=== PATIENT | female | born 1965 | race Caucasian/White ===

== ENCOUNTER 2021-04-21 12:17 | Inpatient (IN) ==
[2021-04-21] MEDS ORDERED: Ondansetron ODT 4 MG TAB.RAPDIS SL PRN (16:12)
[2021-04-21 17:07] LABS: Hematocrit 39.3 % (35.3-44.9); Hemoglobin 11.7 g/dL (11.5-15.4); Mean Corpuscular HGB Conc 29.8 g/dL (31.6-35.5); Mean Corpuscular Hemoglobin 28.1 pg (28.0-33.3); Mean Corpuscular Volume 94.2 fL (83.0-100.0); Platelet Count 243 K/mcL (140-400); Red Blood Count 4.17 M/mcL (3.82-4.97); Red Cell Distribution Width 15.9 % (11.5-14.5); White Blood Count 7.9 K/mcL (4.3-11.1)
[2021-04-21 17:19] LABS: INR 1.3; Prothrombin Time 15.3 Seconds (9.4-12.1)
[2021-04-21 17:30] LABS: Alanine Aminotransferase 32 Units/L (7-52); Albumin 4.7 g/dL (3.5-5.7); Albumin/Globulin Ratio 1.2 (1.1-2.2); Alkaline Phosphatase 105 Units/L (34-104); Aspartate Amino Transferase 40 Units/L (13-39); BUN/Creatinine Ratio 20 (6-26); Bilirubin,Total 0.4 mg/dL (0.3-1.0); Blood Urea Nitrogen 11 mg/dL (6-20); Calcium 9.7 mg/dL (8.6-10.3); Carbon Dioxide 26 mEq/L (23-29); Chloride 103 mEq/L (98-107); Globulin 3.8 g/dL (2.4-3.5); Glucose 116 mg/dL (70-105); Magnesium 2.1 mg/dL (1.6-2.6); Osmolality,Calculated 288 (280-300); Phosphorous 4.3 mg/dL (2.7-4.5); Potassium 4.1 mEq/L (3.5-5.1); Sodium 139 mEq/L (136-145); Total Protein 8.5 g/dL (6.4-8.9); eGFR For African Americans > 60 (> 60); eGFR For Non-African Americans > 60 (> 60)
[2021-04-21] MEDS: Ondansetron 4 MG/2 ML VIAL IVP PRN (17:46)
[2021-04-21] MEDS ORDERED: *HR* OxyCODONE Immed Rel 5 MG TABLET PO PRN (17:53)
[2021-04-21] MEDS: *HR* HYDROmorphone (PF) 1 MG/ML SYRINGE IVP PRN (18:51)
[2021-04-21] MEDS: hydrOXYzine pamoate 25 MG CAPSULE PO SCH (21:41)
[2021-04-21] MEDS: *HR* OxyCODONE/APAP 7.5/325 TABLET PO SCH (21:41)
[2021-04-21] MEDS: Gabapentin 300 MG CAPSULE PO SCH (21:42)
[2021-04-21] MEDS: Apixaban 5 MG TABLET PO SCH (21:42)
[2021-04-21] MEDS ORDERED: *HR* Heparin 5,000 UNIT/ML VIAL SQ SCH (22:00)
[2021-04-22] MEDS: Ringers Solution, Lactated 1,000 ML IVC SCH ×2 (00:44→14:45)
[2021-04-22] MEDS: *HR* HYDROmorphone (PF) 1 MG/ML SYRINGE IVP PRN ×2 (01:29→07:44)
[2021-04-22] MEDS: Ondansetron 4 MG/2 ML VIAL IVP PRN (05:04)
[2021-04-22] MEDS ORDERED: Isovue-370 500 ML BOTTLE IVP ONE (08:54)
[2021-04-22] MEDS ORDERED: Ipratropium/Albuterol Neb 3 ML IH PRN (08:56)
[2021-04-22 09:57] LABS: Hematocrit 36.2 % (35.3-44.9); Hemoglobin 10.6 g/dL (11.5-15.4); Mean Corpuscular HGB Conc 29.3 g/dL (31.6-35.5); Mean Corpuscular Hemoglobin 27.7 pg (28.0-33.3); Mean Corpuscular Volume 94.8 fL (83.0-100.0); Mean Platelet Volume 10.1 fL (9.4-12.4); Platelet Count 222 K/mcL (140-400); Red Blood Count 3.82 M/mcL (3.82-4.97); Red Cell Distribution Width 15.9 % (11.5-14.5); White Blood Count 6.8 K/mcL (4.3-11.1)
[2021-04-22 10:21] LABS: BUN/Creatinine Ratio 22 (6-26); Blood Urea Nitrogen 11 mg/dL (6-20); Calcium 9.1 mg/dL (8.6-10.3); Carbon Dioxide 29 mEq/L (23-29); Chloride 104 mEq/L (98-107); Glucose 102 mg/dL (70-105); Magnesium 2.1 mg/dL (1.6-2.6); Osmolality,Calculated 288 (280-300); Phosphorous 3.5 mg/dL (2.7-4.5); Potassium 4.1 mEq/L (3.5-5.1); Sodium 139 mEq/L (136-145); eGFR For African Americans > 60 (> 60); eGFR For Non-African Americans > 60 (> 60)
[2021-04-22] MEDS: Ipratropium/Albuterol Neb 3 ML IH SCH ×3 (11:07→21:59)
[2021-04-22] MEDS: Gabapentin 300 MG CAPSULE PO SCH ×2 (13:14→15:49)
[2021-04-22] MEDS: *HR* OxyCODONE/APAP 7.5/325 TABLET PO SCH (13:14)
[2021-04-22] MEDS: Apixaban 5 MG TABLET PO SCH (13:14)
[2021-04-22] MEDS: hydrOXYzine pamoate 25 MG CAPSULE PO SCH (13:15)
[2021-04-22] MEDS ORDERED: *HR* Heparin 5,000 UNIT/ML VIAL IVP PRN ×2 (15:21)
[2021-04-22 16:23] LABS: Hematocrit 37.1 % (35.3-44.9); Hemoglobin 11.2 g/dL (11.5-15.4); Mean Corpuscular HGB Conc 30.2 g/dL (31.6-35.5); Mean Corpuscular Hemoglobin 27.9 pg (28.0-33.3); Mean Corpuscular Volume 92.5 fL (83.0-100.0); Platelet Count 230 K/mcL (140-400); Red Blood Count 4.01 M/mcL (3.82-4.97); Red Cell Distribution Width 15.9 % (11.5-14.5); White Blood Count 6.1 K/mcL (4.3-11.1)
[2021-04-22] MEDS ORDERED: D5% in Water 1,000 ML IVC PRN (16:29)
[2021-04-22] MEDS ORDERED: *HR* Dextrose 50 % in Water (Vial) 50 ML VIAL IVP PRN (16:29)
[2021-04-22] MEDS ORDERED: Dextrose Gel 15 GM/37.5 ML TUBE PO PRN ×2 (16:29)
[2021-04-22 16:31] LABS: INR 1.4; Prothrombin Time 16.2 Seconds (9.4-12.1)
[2021-04-22 16:34] LABS: Activated Partial Thrombo Time 27.2 Seconds (26.0-36.0)
[2021-04-22 16:48] LABS: Heparin anti-factor XA UFH 0.15 IU/mL (0.30-0.70)
[2021-04-22 17:31] LABS: Estimated Average Glucose 111 mg/dl; Hemoglobin A1C 5.5 %
[2021-04-22] MEDS: Acetaminophen IV 1,000 MG/100 ML BAG IVPB SCH ×2 (17:46→23:25)
[2021-04-22] MEDS: Heparin 25,000UNIT/250ML 1/2NS 25,000 UNIT/250 ML IV.SOLN IVC SCH (17:48)
[2021-04-22] MEDS ORDERED: Morphine Sulfate 2 MG/ML SYRINGE IVP ONE (20:16)
[2021-04-23 01:18] LABS: Hematocrit 33.9 % (35.3-44.9); Hemoglobin 10.1 g/dL (11.5-15.4); Mean Corpuscular HGB Conc 29.8 g/dL (31.6-35.5); Mean Corpuscular Volume 93.9 fL (83.0-100.0); Mean Platelet Volume 10.1 fL (9.4-12.4); Platelet Count 174 K/mcL (140-400); Red Blood Count 3.61 M/mcL (3.82-4.97); Red Cell Distribution Width 15.9 % (11.5-14.5)
[2021-04-23 01:57] LABS: % Iron Saturation 9 % (15-50); BUN/Creatinine Ratio 18 (6-26); Blood Urea Nitrogen 9 mg/dL (6-20); Calcium 8.9 mg/dL (8.6-10.3); Carbon Dioxide 30 mEq/L (23-29); Chloride 101 mEq/L (98-107); Ferritin 36 ng/mL (10-120); Glucose 94 mg/dL (70-105); Iron 29 mcg/dL (50-170); Magnesium 1.9 mg/dL (1.6-2.6); Osmolality,Calculated 288 (280-300); Phosphorous 2.7 mg/dL (2.7-4.5); Potassium 3.5 mEq/L (3.5-5.1); Sodium 140 mEq/L (136-145); Transferrin 233 mg/dL (203-362); eGFR For African Americans > 60 (> 60); eGFR For Non-African Americans > 60 (> 60)
[2021-04-23 02:02] LABS: Folate > 22.3 ng/mL (3.0-16.0); Vitamin B12 517 pg/mL (250-1100)
[2021-04-23] MEDS: Ipratropium/Albuterol Neb 3 ML IH SCH ×4 (04:33→22:39)
[2021-04-23] MEDS ORDERED: Iron Sucrose Complex 400 MG in 0.9 % Sodium Chloride 250 ML IVPB ONE (08:06)
[2021-04-23] MEDS ORDERED: Perflutren Lipid Microsphere 1.3 ML in 0.9 % Sodium Chloride 8.7 ML IVP PRN (08:10)
[2021-04-23] MEDS: Acetaminophen IV 1,000 MG/100 ML BAG IVPB SCH ×2 (08:49→15:56)
[2021-04-23] MEDS: Heparin 25,000UNIT/250ML 1/2NS 25,000 UNIT/250 ML IV.SOLN IVC SCH (10:21)
[2021-04-23 10:24] LABS: Chol/HDL Ratio 2.6 (0-4.9); Thyroid Stimulating Hormone 2.777 mcIU/mL (0.340-5.600)
[2021-04-23 11:12] LABS: Hematocrit 35.2 % (35.3-44.9); Hemoglobin 10.9 g/dL (11.5-15.4)
[2021-04-23] MEDS: Gabapentin 300 MG CAPSULE PO SCH ×2 (15:54→20:01)
[2021-04-23] MEDS ORDERED: Nitroglycerin 0.4 MG TAB.SUBL SL PRN (17:59)
[2021-04-23] MEDS ORDERED: Melatonin 3 MG TABLET PO PRN (17:59)
[2021-04-23] MEDS: Apixaban 5 MG TABLET PO SCH (20:00)
[2021-04-23] MEDS: hydrOXYzine pamoate 25 MG CAPSULE PO SCH (20:00)
[2021-04-24] MEDS: Acetaminophen IV 1,000 MG/100 ML BAG IVPB SCH ×3 (00:23→16:39)
[2021-04-24] MEDS: Ipratropium/Albuterol Neb 3 ML IH SCH ×3 (04:09→15:41)
[2021-04-24 05:49] LABS: Hematocrit 34.7 % (35.3-44.9); Hemoglobin 11.1 g/dL (11.5-15.4); Mean Corpuscular Hemoglobin 28.8 pg (28.0-33.3); Mean Corpuscular Volume 89.9 fL (83.0-100.0); Mean Platelet Volume 9.9 fL (9.4-12.4); Platelet Count 200 K/mcL (140-400); Red Blood Count 3.86 M/mcL (3.82-4.97); Red Cell Distribution Width 15.9 % (11.5-14.5); White Blood Count 4.2 K/mcL (4.3-11.1)
[2021-04-24 06:02] LABS: BUN/Creatinine Ratio 10 (6-26); Blood Urea Nitrogen 5 mg/dL (6-20); Calcium 9.5 mg/dL (8.6-10.3); Carbon Dioxide 29 mEq/L (23-29); Chloride 102 mEq/L (98-107); Glucose 90 mg/dL (70-105); Magnesium 1.8 mg/dL (1.6-2.6); Osmolality,Calculated 289 (280-300); Phosphorous 2.6 mg/dL (2.7-4.5); Sodium 141 mEq/L (136-145); eGFR For African Americans > 60 (> 60); eGFR For Non-African Americans > 60 (> 60)
[2021-04-24] MEDS ORDERED: Multivit/Ca/Min/Fe/FA 1 TAB TABLET PO SCH (09:00)
[2021-04-24] MEDS: hydrOXYzine pamoate 25 MG CAPSULE PO SCH (09:27)
[2021-04-24] MEDS: Gabapentin 300 MG CAPSULE PO SCH ×2 (09:28→16:39)
[2021-04-24] MEDS: Apixaban 5 MG TABLET PO SCH (09:28)
[2021-04-24 18:01] VITALS: BP 146/80
== END 2021-04-24 18:45 | disposition left against medical advice (07) | DRG 388 ==
LOC: 3ANU → SUATTDRO 15:11
PROVIDERS: ADMIT Internal Medicine; ATTEND Internal Medicine